=== PATIENT | male | born 1955 | race Caucasian/White ===

== ENCOUNTER 2019-04-02 12:30 | Emergency (ER) | payer BC ==
[2019-04-02 12:34] VITALS: BMI 20.4
[2019-04-02 14:38] LABS: BASOPHILS 0.1 % (0-2); EOSINOPHILS 1.5 % (0-7); IMMATURE GRANULOCYTES 0.9 % (0-5); LYMPHOCYTES 4.2 % (15-50); MCH 28.3 pg (26.0-34.0); MCHC 34.3 g/dL (31.0-37.0); MCV 82.5 fL (80.0-100.0); MEAN PLATELET VOLUME 8.9 fL (7.4-10.4); MONOCYTES 9.6 % (2-11); NEUTROPHILS 83.7 % (40-80); PLATELET COUNT 521 10x3/uL (130-400); RBC 4.24 10x6/uL (4.20-6.10); RDW 13.1 % (11.5-14.5)
[2019-04-02 14:57] LABS: ALBUMIN 2.3 g/dL (3.4-5.0); ALKALINE PHOSPHATASE 203 U/L (46-116); ALT (SGPT) 91 U/L (10-68); CALC OSMOLALITY 282 mosm/kg (275-300); CALCIUM 9.6 mg/dL (8.5-10.1); CARBON DIOXIDE 28.5 mmol/L (21.0-32.0); CHLORIDE - SERUM 101 mmol/L (98-107); CREATININE - SERUM 0.8 mg/dL (0.6-1.3); GLUCOSE 124 mg/dL (74-106); MAGNESIUM - SERUM 2.7 mg/dL (1.8-2.4); POTASSIUM - SERUM 3.7 mmol/L (3.5-5.1); PROTEIN - SERUM 8.8 g/dL (6.4-8.2); SODIUM 139 mmol/L (136-145); UREA NITROGEN 23 mg/dL (7-18); eGFR NON AFRICAN AMERICAN > 90 mL/min (90-120)
[2019-04-02] MEDS ORDERED: DILAUDID4 MG PO (16:20)
[2019-04-02 16:49] VITALS: BP 100/82
== END 2019-04-02 16:43 | disposition home or self-care (01) ==
LOC: D.ER 12:30
PROVIDERS: Emergency Medicine
DX: R22.32 Localized swelling, mass and lump, left upper limb (principal); R63.4 Abnormal weight loss; R53.83 Other fatigue